=== PATIENT | female | born 1995 | race Caucasian/White ===

== ENCOUNTER → 2024-03-09 14:49 | Outpatient (BNVA) | payer OTHER, SELFPAY | PROVIDERS: PCP Family Medicine; Visit Provider Physician Assistant Surgical ==

== ENCOUNTER 2024-03-18 08:01 | Outpatient (AMB) | payer OTHER, SELFPAY ==
--- OUTSIDE RECORDS SUMMARY | 2024-03-18 08:05 | XMS_ITS | Encounter Summary ---
Author Organization [employer] Address [address] [place] [address] 7 [place] [address] Care Team Providers Care Dental Appliance Repairer Name Role Phone Dominik Michaels Primary Care Provider [phone] Encounter Details Date Type Department Care Team (Late st Contact Info) Description 03/04/2023 Abstract [facility] [address] [place] [phone] Dominik Michaels PA [address] [place] [address] Social History Tobacco Use Types Packs/Day Years Used Date Smoking Tobacco: Never Passive Smoke Exposure: Never Smokeless Tobacco: Never Alcohol Use Standard Drinks/Week Comments Yes 0 (1 standard drink = 0.6 oz pur e alcohol) socially Alcohol Answer Date Recorded How often do you have a drink containing alcohol ? 2 02/27/2023 How many drinks containing a lcohol do you have on a typical day when you are drinking? 0 02/27/2023 How often do you have six or more drinks on one occasion? 0 02/27/2023 Housing Stability Answer Date Recorded What is your housing situation today? I have tunde [place] 02/27/[address] you li ve. Do you have problems with any of the following? None of the above 02/27/2023 Food Insecurity Answer Date Recorded Within the past 12 months, y ou worried that your food would run out before you got money to buy more: Never True 02/27/2023 Within the past 12 months,th e food you bought just didn't last and you didn't have enough money to get more: Never True Transportation Answer Date Recorded In the past 12 months, has l ack of transportation kept you from medical appts, meetings, work or from getting things needed for daily living? No 02/27/2023 Intimate Partner Violence Answer Date R ecorded Within the last year, have y ou been afraid of your partner or ex-partner? 2 02/27/2023 Within the last year, have y ou been humiliated or emotionally abused in other ways by your partner or ex-partner? 2 Within the last year, have y ou been kicked, hit, slapped, or otherwise physically hurt by your partner or ex-partner? 2 02/27/2023 Within the last year, have y ou been raped or forced to have any kind of sexual activity by your partner or ex-partner? 2 02/27/2023 Utilities Answer Date Recorded In the past 12 months, has t he electric, gas, oil or water company threatened to shut off services in your home? No 02/27/2023 Depression Answer Date Recorded Patient Health Questionnaire-2 Score 0 01/20/2023 Comments No Sex and Gender Information Value Date Recorded Sex Assigned at Female 02/07/2022 10:58 AM EST Legal Sex Female 10:41 AM EST Gender Identity Female 01/08/2022 10:41 AM EST Sexual Orientation Straight 01/08/2022 10 :41 AM EST documented as of this encounter Plan of Treatment Not on file documented as of this encounter Visit Diagnoses Not on filedocumented in this encounter Care Teams Dental Appliance Repairer Relationship Specialty Start Date End Date Dominik Michaels PA [address] [place] [id number] PCP - General Family Medicine 01/07/22 documented as of this encounter
--- OUTSIDE RECORDS SUMMARY | 2024-03-18 08:05 | XMS_ITS | Encounter Summary ---
Author Organization [employer] Address [address] [place] [address] [place] [address] Care Team Providers Care Cyber Security Administrator Name Role Phone Dominik Michaels Primary Care Provider [phone] Encounter Details Date Type Department Care Team (Late st Contact Info) Description 03/28/2022 Abstract [facility] [address] [place] [phone] Dominik Michaels PA [address] [place] [address] Social History Tobacco Use Types Packs/Day Years Used Date Smoking Tobacco: Never Passive Smoke Exposure: Never Smokeless Tobacco: Never Alcohol Use Standard Drinks/Week Comments Yes 0 (1 standard drink = 0.6 oz pur e alcohol) socially Depression Answer Date Recorded Patient Health Questionnaire-2 Score 0 01/28/2022 Comments No Sex and Gender Information Value Date Recorded Sex Assigned at Female 02/07/2022 10:58 AM EST Legal Sex Female 10:41 AM EST Gender Identity Female 01/08/2022 10:41 AM EST Sexual Orientation Straight 01/08/2022 10 :41 AM EST COVID-19 Exposure Response Date Recorded In the last 10 days, have yo u been in contact with someone who was confirmed or suspected to have Coronavirus/COVID-19? No / Unsure 03/11/2022 7:58 AM EST documented as of this encounter Plan of Treatment Not on file documented as of this encounter Visit Diagnoses Not on filedocumented in this encounter Care Teams Cyber Security Administrator Relationship Specialty Start Date End Date Dominik Michaels PA [address] [place] [address] PCP - General Family Medicine 01/07/22 documented as of this encounter
--- OUTSIDE RECORDS SUMMARY | 2024-03-18 08:05 | XMS_ITS | Encounter Summary ---
Author Organization [employer] Address [address] [place] [address] 7 [place] [address] Care Team Providers Care Institutional Cook Name Role Phone Dominik Michaels Primary Care Provider [phone] Reason for Visit * Reason Comments Med Refill Encounter Details Date Type Department Care Team ([facility] st Contact Info) Description 03/06/2024 Refill [facility] [address] [place] [phone] Dominik Michaels PA [address] [place], [place] [id number] Insomnia, unspecified type Social History Tobacco Use Types Packs/Day Years [...] AM EST documented as of this encounter Miscellaneous Notes * Telephone Encounter - Kamila Arciniega - 03/08/2024 1:01 PM EST [facility] for c/b to schedule * Telephone Encounter - GRACIA Ngo - 03/08/2024 11:32 AM EST Refill provided. Needs appointment before next refill. * Telephone Encounter - Darlene España - 03/07/2024 8:34 AM EST PCP: GRACIA Ngo Last in-person office visit: 02/27/2023 GRACIA Ngo Lab Results Component Value Date BUN 14 02/12/2022 CREATININE 0.6 02/12/2022 EGFRCREATINI 126 02/12/2022 HGBA1C 5.1 02/12/2022 K 4.0 02/12/2022 TSH 2.55 02/12/2022 Assessment: [x] Protocol passed [] Lab due [] Appointment due Plan: [x] Please refill for 90 days [] Lab [] BMP [] TSH [] A1C [] Appointment due: No future appointments. Comments: documented in this encounter Plan of Treatment Not on file documented as of this encounter Visit Diagnoses Diagnosis Insomnia, unspecified type documented in this encounter Care Teams Institutional Cook Relationship Specialty Start Date End Date Dominik Michaels PA [address] [place] [id number] PCP - General Family Medicine 01/07/22 documented as of this encounter
--- OUTSIDE RECORDS SUMMARY | 2024-03-18 08:05 | XMS_ITS | Encounter Summary ---
Author Organization [employer] Address [address] [place] [address] [address] [place] [address] Care Team Providers Care Police Surgeon Name Role Phone Dominik Michaels Primary Care Provider [phone] Encounter Details Date Type Department Care Team (Late st Contact Info) Description 01/07/2022 Abstract [facility] [address] [place] [phone] Dominik Michaels PA [address] [place] [address] Social History Tobacco Use Types Packs/Day Years Used Date Smoking Tobacco: Never Assessed Comments Unknown Sex and Gender Information Value Date Recorded Sex Assigned at Female 02/07/2022 10:58 AM EST Legal Sex Female 10:41 AM EST Gender Identity Female 01/08/2022 10:41 AM EST Sexual Orientation Straight 01/08/2022 10 :41 AM EST documented as of this encounter Plan of Treatment Not on file documented as of this encounter Visit Diagnoses Not on filedocumented in this encounter Care Teams Police Surgeon Relationship Specialty Start Date End Date Dominik Michaels PA [address] [place] [address] PCP - General Family Medicine 01/07/22 documented as of this encounter
--- OUTSIDE RECORDS SUMMARY | 2024-03-18 08:05 | XMS_ITS | Encounter Summary ---
Author Organization [employer] Address [address] [place] [address] 7 [place] [address] Care Team Providers Care Data Warehousing Engineer Name Role Phone Dominik Michaels Primary Care Provider [phone] Reason for Visit * Reason Onset Date Comments Cervical Cancer Screening 02/24/2024 Encounter Details Date Type Department Care Team ([facility] st Contact Info) Description 02/24/[address] [phone] Dominik Michaels PA [address] [place], [place] [id number] Cervical Cancer Screening Social History Tobacco Use Types Packs/Day Years [...] is your housing situation today? I have tundemode [place] 02/27/[address] you [...] on filedocumented in this encounter Care Teams Data Warehousing Engineer Relationship Specialty Start Date End Date Dominik Michaels PA [address] [place] [id number] PCP - General Family Medicine 01/07/22 documented as of this encounter
--- OUTSIDE RECORDS SUMMARY | 2024-03-18 08:05 | XMS_ITS | Clinical Summary ---
Author Organization [employer] Address [address] [facility] [address] [place] [address] Care Team Providers Care Filling Machine Operator Name Role Phone Dominik Michaels Primary Care Provider [phone] Allergies Active Allergy Reactions Criticality Noted Date Comments Sulfa Antibiotics Anaphylaxis High 08/30/2014 Sulfamethoxazole-Trimethoprim 2014 Hives Hives Medications * This document contains information received from the source organization and may not represent a complete record from that organization. Dupixent 300 MG/2ML injection 01/10/20 22 Active amphetamine-dextr oamphetamine XR (Adderall XR) 20 MG 24 hr capsule Take 1 capsule (20 mg) by mouth in the morning for 28 days. Do not crush or chew. 28 capsule 01/28/20 23 Active naltrexone (Depade) 50 MG tablet TAKE 1/2 TABLET BY MOUTH IN THE MORNING 15 tablet 2 03/13/19 24 Active amphetamine-dextr oamphetamine (Adderall) 20 MG tabletIndications :Attention deficit hyperactivity disorder (ADHD), combined type Take 1 tablet (20 mg) by mouth Once daily for 28 days. Take in the afternoon. 28 tablet 03/18/19 24 Active amphetamine-dextr oamphetamine XR (Adderall XR) 20 MG 24 hr capsuleIndication s:Attention deficit hyperactivity disorder (ADHD), combined type Take 1 capsule (20 mg) by mouth in the morning for 28 days. Do not crush or chew. 28 capsule 03/24/19 24 Active metFORMIN XR (Glucophage-XR) 500 MG 24 hr tablet TAKE 4 TABLETS (2,000 MG) BY MOUTH WITH EVENING MEAL. DO NOT CRUSH, CHEW, OR SPLIT. 360 tablet 1 05/07/19 24 Active lamoTRIgine (LaMICtal XR) 200 mg tablet sustained-release 24 hour 24 hr tabletIndications :Bipolar 1 disorder, depressed, partial remission (CMS/HCC) TAKE 1 TABLET BY MOUTH IN THE MORNING 90 tablet 01/11/20 24 Active traZODone (Desyrel) 100 MG tabletIndications :Insomnia, unspecified type TAKE 1 TABLET BY MOUTH AT BEDTIME 90 tablet 03/08/19 25 Active traZODone (Desyrel) 100 MG tabletIndications :Insomnia, unspecified type TAKE 1 TABLET BY MOUTH AT BEDTIME 90 tablet 3 03/12/19 24 025 Discontinued Active Problems Problem Noted Date Diagnosed Date Adjustment disorder with depressed mood 07/10/19 23 Obesity 05/29/2022 Assessment & Plan (02/27/2023 5:07 PM EST): Worsening obesity BMI 31.71 with progressive weight gain despite metformin, now with associated recurrent binge-eating. Pt w/ new health insurance. Shared decision to try GLP1 again given previous benefit with trulicity towards weight loss goals. Script sent for wegovy 0.25mg weekly. Also will try naltrexone 25mg daily for possible benefit towards binge-eating - reviewed risks/benefits and s/e profile. Return in 1 month for continued monitoring/ management. May consider dose increases at that time. For now continue metformin XR 1500mg daily; may ultimately discontinue if GLP1 approved given lack of demonstrated benefit from metformin thus far. Assessment & Plan (01/20/2023 9:07 AM EST): Worsening since switching from trulicity to metformin per insurance requirements, despite continued lifestyle measures. Shared decision to increase metformin from XR 1000mg daily to XR 1500mg daily. F/u again in 6 weeks on effect/tolerability. Assessment & Plan (12/12/2022 5:21 AM EDT): Prior auth denied for trulicity; patient no longer able to obtain through new insurance. Discussed alternatives. PA listing recommendation for metformin trial - if patient fails 90-day trial then may be able to re-submit PA for trulicity though unclear if pt even meets insurance eligibility criteria for metformin given treatment on sole basis of obesity. Reviewed this with pt and also reviewed risks/benefits of metformin therapy for obesity - pt in agreement to attempt to initiate trial. Rx sent for metformin XR 500mg once daily x 2 wks, then XR 1000mg once daily thereafter. Reviewed s/e profile. Take with food. Return in 1 month for f/u on effect/tolerability. Alternatively if insurance company does not approve metformin then may need to consider alternative; unsure if [facility] will approve any med for weight-loss unfortunately. Assessment & Plan (10/31/2022 2:57 PM EDT): Increasing Trulicity to 4.5 mg weekly for further effect. Return in 3 months for follow-up on effect/tolerability Assessment & Plan (07/29/2022 9:05 AM EDT): Clinically benefiting from current med regimen, taking as prescribed and tolerating well with no side effects. Increasing Trulicity to 3 mg weekly via shared decision making. Patient has scheduled appointment with juvenile court judge. Will return in 3 months for regular follow-up or sooner as needed. May increase Trulicity again at that time to 4.5 mg weekly if further weight loss warranted and progress plateaus. Assessment & Plan (05/29/2022 8:52 AM EDT): Restarting weight loss med therapy via shared decision-making. Pt agreeable to first line GLP-1 agonist rather than phentermine. Reviewed s/e profile and adverse event risk. No known personal or family hx/o thyroid cancer or pancreatitis. Will start at 0.25mg dose for 4 wks, then increase to 0.5mg and return in 8wks for f/u on effect/tolerability. Goal 1-2 lbs/wk. Also sent msg to referrals inquiring about non-surgical weight loss programs that pt's insurance would cover. Bipolar 1 disorder, depressed, partial remission 01/28/2022 Overview (01/28/2022): On lamotrigine 200mg every day. Assessment & Plan (07/29/2022 9:04 AM EDT): Overall stable. Sent message to behavioral health team per patient request to switch to different therapist. Assessment & Plan (01/28/2022 9:05 AM EST): Clinically benefiting from current med regimen, taking as prescribed and tolerating well with no side effects. Continue as is and will continue to monitor. Referral also placed for internal BH therapy. Pt would like to restart counseling but start with short-term therapy. Insomnia 01/28/2022 Overview (01/28/2022): Stable on trazodone 100mg nightly started approx 2015. Assessment & Plan (01/28/2022 9:09 AM EST): Clinically benefiting from current med regimen, taking as prescribed and tolerating well with no side effects. Continue as is and will continue to monitor. Encounter for surveillance o f Nexplanon subdermal contraceptive 01/28/2022 Overview (01/28/2022): Placed 2018. Plan for removal in 2023 via shared decision-making. Attention deficit hyperactiv ity disorder (ADHD), combined type 01/28/2018 Overview (07/29/2022): Stable on adderall XR 20mg each morning, IR 20mg each afternoon Assessment & Plan (02/27/2023 5:01 PM EST): Stable. Clinically benefiting from current med regimen, taking as prescribed and tolerating well with no side effects. Continue as is and will continue to monitor. Obtained repeat med contract and tox screen today. Assessment & Plan (01/20/2023 9:07 AM EST): Clinically benefiting from current med regimen, taking as prescribed and tolerating well with no side effects. Continue as is and will continue to monitor. Assessment & Plan (10/31/2022 2:57 PM EDT): Clinically benefiting from current med regimen, taking as prescribed and tolerating well with no side effects. Continue as is and will continue to monitor. No concern for misuse/diversion at this time. Assessment & Plan (07/29/2022 9:03 AM EDT): Clinically benefiting from current med regimen, taking as prescribed and tolerating well with no side effects. Continue as is and will continue to monitor. Regular monitoring tox screen obtained today. No concerns for misuse/diversion at this time. Assessment & Plan (05/29/2022 8:50 AM EDT): Sending typical adderall XR script (20mg) to new pharmacy pt thinks may have in stock. If not then she will call other pharmacies, may consider switching to different stimulant based on availability. Assessment & Plan (03/11/2022 8:27 AM EST): Increasing Adderall XR from 10 mg to 15 mg per shared decision making. Up-to-date on tox screen and contract. 7-day prescription sent, patient in agreement to send portal message nearing end of this prescription with report on efficacy and side effect profile. At that time will either refill 28-day supply of this dose, or consider increasing further to 20 mg XR. We will see again in person in 3 months. Assessment & Plan (01/28/2022 9:08 AM EST): Was stable on mydayis 50mg every day w/ no s/e. Off for 2 months d/t insurance lapse. Restarting today at 12.5mg dose - 7 day rx sent, med contract signed, saliva tox obtained. If tox screen appropriate upon receipt will send 28 day supply at increased 25mg dose. Pt to reach out prior if feels stable on 12.5mg and/or if having s/e. Will f/u in 6wks. Eczema 07/19/2014 Overview (01/28/2022): Receives dupixent injections at [facility] with Marino Solano. Resolved Problems Problem Noted Date Diagnosed Date Resolved Date Weight gain 01/28/2022 02/27/2023 Assessment & Plan (01/28/2022 9:10 AM EST): Labs ordered to assess for organic etiology. She will return to have drawn prior to next visit for review together at that time. Encounters Date Type Department Care Team Description 03/06/[address] [phone] Dominik Michaels PA Insomnia, unspecified type 02/24/[address] [phone] Dominik Michaels PA Cervical Cancer Screening 02/05/[address] [phone] Dominik Michaels PA 01/09/[address] [phone] Dominik Michaels PA Bipolar 1 disorder, depressed, partial remission ([facility]) from Last 3 Months Immunizations Name Administration Dates Next Due DTP 10/08/1999, 8,04/20/1996,02/07,1995 DTaP / HiB / IPV 01/09/1997, 7,02/08/1996,12/03 HPV, Quadrivalent 07/19/2013,03/21/2013,01/18/20 13 Hep B, Adolescent or Pediatric 07/07/1996,1995,1995 INFLUENZA INJECTABLE QUADRIV ALANT CCIIV4 MDCK Multi-dose vial 12/05/2016 IPV 09/29/2000, 8,02/08/1996,12/03 Influenza Injectable Quadriv alant Preservative Free IIV4 MDCK 11/01/2019,10/28/2018,10/26/2017 Influenza injectable quadriv alent preservative free 01/28/2022 Influenza, IIV3, injectable 12/16/2012 Influenza, Unspecified 2022 MMR 09/29/2000,01/09/1997 Meningococcal MCV4P ACYW-135 08/30/2014 Meningococcal MPSV4 12/13/2008 Moderna Covid-19 Vaccine 12+ 12/25/2020 PPD Test 09/26/2015 Pfizer Covid-19 Vaccine 12+ Bivalent 01/28/2022 Rabies - IM Fibroblast Culture 0,07/23/2019,07/19/2019,07/13 Rabies Immune Globulin 07/14/2019 Td (adult) 07/14/2019 Tdap 10/06/2012,11/18/2006 Varicella 12/13/2008,04/10/1997 Social History Tobacco Use Types Packs/Day Years Used Date Smoking Tobacco: Never Passive Smoke Exposure: Never Smokeless Tobacco: Never Tobacco Cessation:Counseling Given: Not Answered Alcohol Use Standard Drinks/Week Comments Yes 0 [...] Orientation Straight 01/08/2022 10 :41 AM EST Last Filed Vital Signs Vital Sign Reading Time Taken Comments Blood Pressure 114/72 03/10/2023 3:24 PM EST Pulse 105 03/10/2023 3:24 PM EST Temperature 37.2 ??C (99 ??F) 03/10/2023 3:24 PM EST Respiratory Rate - - Oxygen Saturation 98% 03/10/2023 3:24 PM EST Inhaled Oxygen Concentration - - Weight 81.2 kg (179 lb) 02/27/2023 4:06 PM EST Height 160 cm (5' 3 ) 12/11/2022 4:25 PM EDT Body Mass Index 31.71 12/11/2022 4:25 PM EDT Plan of Treatment Health Maintenance Due Date Last Done Comments Alcohol/Substance Use Screening 2007 Family Planning (PISQ) 10/08/2010 Pap Smear 10/08/2016 Depression Screening 01/21/2024 01/20/2023, 01/21/20 23 SDOH Screening 02/28/2024 02/27/2023 Tobacco Screening 03/10/2024 03/10/2023 Lipid Panel 02/12/2027 02/12/2022 DTaP/Tdap/Td Vaccines (9 - Td or Tdap) 07/13/2029 07/14/2019, 07/14/2019, 10/06/2012, Additional history exists Zoster Vaccines (1 of 2) 10/08/2045 RSV Patients and Patients Aged 60 years or older (1 - 1-dose 75+ series) 10/08/2070 Hepatitis B Vaccines Completed 07/07/1996, 1995, 1995 HIB Vaccines Completed 01/09/1997, 02/1996, 04/20/1996, Additional history exists IPV Vaccines Completed 09/29/2000, 03/1997, 01/09/1997, Additional history exists HPV Vaccines Completed 07/19/2013, 03/12, 01/17/2013 Meningococcal Vaccine Completed 08/30/2014 , 08/30/2014, 12/13/2008 HIV Screening Completed 02/12/2022 Hepatitis C Screening Completed 02/12/2022 COVID-19 Vaccine Completed 11/15/2023, , 12/25/2020, Additional history exists Influenza Vaccine Completed 11/15/2023, , 2022, Additional history exists Hepatitis A Vaccines Aged Out No long er eligible based on patient's age to complete this topic Pneumococcal Vaccine: Pediatrics (0 to 5 Years) and At-Risk Patients (6 to 49) Years) Aged Out No longer eligible based on patient's age to complete this topic RSV under 20 months Aged Out No longe r eligible based on patient's age to complete this topic Rotavirus Vaccines Aged Out No longer eligible based on patient's age to complete this topic Procedures Procedure Name Priority Date/Time Associated Diagnosis Comments HEPATITIS C AB W/REFLEX TO HCV QUANT NAAT IF POSITIVE Routine 02/12/2022 8:37 AM EST HIV 1/2 ANTIGEN/ANTIBODY, FOURTH GENERATION W/RFL Routine 02/12/2022 8:37 AM EST LIPID PANEL, STANDARD Routine 02/12/2022 8:37 AM EST Weight gain from Last 3 Months or Most Recently Relevant to Health Maintenance Results * Hepatitis C Antibody w/Reflex HCV Quant PCR (02/12/2022 8:37 AM EST) Hepatitis C Virus Ab, Serum NEGATIVE (NEG) [facility] Comment: Reference range: Negative This test was performed on the [employer] Mangle Tender immunoassay system. Testing performed or reported by [facility], a Service of [facility], [facility] [place] [address] Reid Chairez MD, Fine Arts [employer] IA# [id number] 02/12/2022 8:37 AM EST 02/12/2022 8:38 AM EST us Dominik FAGAN LAB BLOOD ORDERABLES Final Resul t Performing Organization Address [facility] Co de Phone Number [facility] [address] [place] [phone] * HIV-1/2 Antigen and Antibodies, Fourth Generation, with Reflexes (02/12/2022 8:37 AM EST) Result 4th Gen HIV Antibody Antigen NEGATIVE (NEG) [facility] Comment: Negative for antibodies to HIV 1 and HIV 2 and P24 antigen. Reference range: Negative Additional note: Written patient authorization is required for each separate release of this test result. This test was performed on the [employer] Mangle Tender immunoassay system. Testing performed or reported by [facility], a Service of [facility], [address] [place], [place] [address], [place] [address] Reid Chairez MD, [employer] CLIA# [id number] 02/12/2022 8:37 AM EST 02/12/2022 8:39 AM EST Dominik FAGAN LAB BLOOD ORDERABLES Final Resul t Performing Organization Address [facility] de Phone Number [facility] [address] [place] [phone] * Lipid Panel, Standard (02/12/2022 8:37 AM EST) Cholesterol, Total 149 (<200) MG/DL [facility] Triglyceride (mg/dL) in Serum/Plasma 52 (<150) MG/DL [facility] HDL Cholesterol 59 (>39) MG/DL [facility] LDL Cholesterol, Calculated 80 (0-130) MG/DL [facility] Non HDL Chol. (LDL+VLDL) 90 (<160) MG/DL [facility] Comment: Testing performed or reported by [facility], a Service of [facility], [address] [place] [id number] Yusra Winslow MD, [employer] CLIA# [id number] Blood Venous blood specimen / Unknown 02/12/2022 8:37 AM EST 02/12/2022 8:38 AM EST Dominik FAGAN LAB BLOOD ORDERABLES Final Resul t [facility] [address] [place] [address] from Last 3 Months or Most Recently Relevant to Health Maintenance Insurance [address] [id number] BCBS PPO Care Teams Filling Machine Operator Relationship Specialty Start Date End Date Dominik Michaels PA [address] [place] [id number] PCP - General Family Medicine 01/07/22
--- OUTSIDE RECORDS SUMMARY | 2024-03-18 08:05 | XMS_ITS | Encounter Summary ---
Author Organization [employer] Address [address] [place] [address] 7 [place] [address] Care Team Providers Care Brusher Machine Name Role Phone Dominik Michaels Primary Care Provider [phone] Reason for Visit * Reason Onset Date Comments Med Refill 08/27/2022 Encounter Details Date Type Department Care Team (Late st Contact Info) Description 08/27/[address] [phone] Dominik Michaels PA [address] [place] [address] [phone] Class 1 obesity without serious comorbidity with body mass index (BMI) of 32.0 to 32.9 in adult, unspecified obesity type Social History Tobacco Use Types Packs/Day [...] suspected to have Coronavirus/COVID-19? No / Unsure 07/29/2022 8:22 AM EDT documented as of this encounter Plan of Treatment Not on file documented as of this encounter Visit Diagnoses Diagnosis Class 1 obesity without serious comorbidity with body mass index (BMI) of 32.0 to 32.9 in adult, unspecified obesity type documented in this encounter Care Teams Brusher Machine Relationship Specialty Start Date End Date Dominik Michaels PA [address] [place] [id number] PCP - General Family Medicine 01/07/22 documented as of this encounter
--- OUTSIDE RECORDS SUMMARY | 2024-03-18 08:05 | XMS_ITS | Encounter Summary ---
Author Organization [employer] Address [address] [place] [address] [address] [place] [address] Care Team Providers Care Instructor Nurse Name Role Phone Dominik Michaels Primary Care Provider [phone] Encounter Details Date Type Department Care Team (Late st Contact Info) Description 03/13/2023 Abstract [facility] [address] [place] [phone] Dominik Michaels PA [address] [place] [address] Social History Tobacco Use Types [...] on filedocumented in this encounter Care Teams Instructor Nurse Relationship Specialty Start Date End Date Dominik Michaels PA [address] [place] [id number] PCP - General Family Medicine 01/07/22 documented as of this encounter
--- NOTE | 2024-03-18 09:12 | A.OFFVIS_ITS ---
VS Expanded 03/18/24 09:27 Height 5 ft 2.5 in Weight 226 lb 4 oz BMI 40.7 Body Fat % 42 Body Fat Mass 95 Fat Free Mass 131.2 Visceral Fat Rating 10 Body Water Mass 94.4 Basal Metabolic Rate/Score 1,858 Intake Visit Reasons: [employer] BMI 40.7 Allergies Sulfa (Sulfonamide Antibiotics) Allergy (Severe, Verified 03/18/24 09:15) Anaphylaxis Medication List - Last Reconciled 03/18/24 by Jamey Torrez MD amphetamine ER 20 mg PO QAM biotin mcg PO cholecalciferol (vitamin D3) 50 mcg PO DAILY dextroamphetamine sulfate 20 mg PO BID dupilumab (Dupixent) 300 mg subcut Q2W etonogestrel (Nexplanon) subdermal lamotrigine 200 mg PO DAILY trazodone 150 mg PO BEDTIME PRN HPI HPI [employer] BMI 40.7: Details: Start time: 9.07am, End time: 9.54am I spent 42 minutes speaking with the patient on the phone plus an additional 5 minutes reviewing and updating records for a total of 47 minutes HPI Comments Details: Previous weight loss efforts: Trulicity: lost 7lbs Wakes: 4.45am, sleeps: 9.30pm Breakfast: occasional has (toast) Lunch: 11.30am (as dinner) Dinner: 5pm (burger, chicken stir watson, pasta) Snacks: 7pm (crackers, dessert) Exercise: apartment building has treadmill Fluids: Coffee (2 cups/d with sugar), tea: none, soda: Lesly froy, juice: cranberry (2/wk), ETOH: 2/wk (2 glass of wine) PFSH Medical History (Updated 03/18/24 @ 09:20 by Jamey Torrez MD) Insomnia Anxiety Depression ADHD Morbid obesity Surgical History (Updated 03/10/24 @ 08:13 by Olga Lemus CMA) Hx of cholecystectomy Hx of adenoidectomy Hx of tonsillectomy Family History (Updated 03/09/24 @ 15:32 by Olga Lemus CMA) Mother No problems noted. Father No problems noted. Social History (Updated 03/09/24 @ 15:32 by Olga Lemus CMA) Alcohol intake: current Alcohol intake frequency: holidays/special occasions only Patient Tobacco Use Status: Never used Tobacco Telehealth Telehealth Telehealth Platform: Telephone Location of provider rendering services: practice address Location of patient: address on file Patient Identification confirmed using: Name, : Yes Telehealth method: voice only Patient verbally consented to treatment: Yes Patient verbally consented to billing insurance company: Yes Patient informed of any privacy concerns related to visit: Yes Minutes spent on Phone/Video with Pt.: 47 Assessment & Plan Assessment & Plan (1) Morbid obesity: Code(s): E66.01 - Morbid (severe) obesity due to excess calories Category: Medical Plan: 1. Plan for lap sleeve gastrectomy. If diaphragmatic or ventral hernias are present at time of surgery, these will be repaired laparoscopically as well. I emphasized the importance of close follow-up, adherence to instructions and good communication. The surgery does not replace the need to change your lifestlyle which is the cause of the obesity problem. The surgery provides the motivation to try again to change your lifestyle, it reduces the appetite and make the transition to a better lifestyle easier and doubles the amount of weight you would lose compared to doing the lifestyle change without the surgery. You will need to be on a liquid diet with protein shakes for 2 weeks before surgery to maximize weight loss and boost your nutritional status to recover better from surgery and also for the first two weeks after surgery to let the stomach heal before we introduce other foods. After the first 2 weeks we will introduce protein bars and soft foods like scrambled eggs, cottage cheese and yogurt and after the 6th week will introduce meat, fish and cooked vegetables in small amounts. Over time you should be able to eat everything in small amounts. Side effects like nausea, vomiting, heartburn or abdominal pain are not common in the practice unless you are not following in the practice. This operation requires lifetime commitment to following in our practice and communication with me. You will much less weight and experience side effects if you don?t communicate or not following in the practice. Complications are rare and in our practice is about 1/10 of the national average. However, you can develop bleeding that may require transfusion (hasn?t happened for year in the practice), you may from complications (we did not have any deaths in the practice) and infections. Infections are usually a result of breakdown in communication or not understanding or following directions correctly. They are difficult to treat, they can happen during the first 6 weeks, they may require to be in the hospital for weeks or even months, not being able to eat by mouth and you may have drains and surgeries to try and correct the issue. Other risks and complications include possible conversion to an open procedure, leaks, small bowel obstruction, blood clots, cardiac, or pulmonary complications, as ferry terminal agent complications such as ulcers, insufficient weight loss and vitamin deficiencies. 2. You will receive a link of our software benjamin to generate an individualized nutritional and exercise plan specific for you. Please send me a screenshot of the plans you will generate Meal to include lean meat (beef, fish, pork, turkey, chicken), or kinyarwanda yogurt, or egg whites, or beans with a salad with olive oil and fruits (berries, pears, apples, kiwi). Avoid salt, breads, potatoes, rice, pasta, desserts. 3. If you choose shakes, each shake would be drunk slowly, like coffee in a period of 2 hours. 4. If you choose bars, cut each bar in 4 pieces and eat each piece in 30min to make each bar last 2 hours. 5. I emphasized the importance of measuring accurately the food portion and measure it when serving the food in plate 6. The meal portions include a specific number of forks of meat and salad. You always eat the meat portion but you can replace up to half of salad/vegetables portion with rice, potatoes or pasta, or a fruit if you like. The less you do it the better weight loss will be. 7. One full-size fork is what it can be scooped on the fork without falling aside and not what can be bit with the fork. Use regular forks like those you find in a typical restaurant. 8. Please buy the body composition scale we discussed and send me weight measurements as soon as possible and then once a week. Always include your diet and exercise plan. 9. The best choice would be to purchase a stationary bike, elliptical or treadmill at home that can track calories. Let me know if you do so I can give you an exercise plan. 10. It is important of avoiding and for at least 18 months postoperatively and has been discussed at the infosession. 11. Goal is to lose at least 1.5-2lbs per week 12. Goal to lose 10% of your weight before surgery, which is about 22lbs. Ultimate weight goal: 204lbs before surgery 13. Please follow the diet plan exactly without any change. If you don't like something about the plan or you feel hungry you need to communicate with me so I can help you revise the plan. You should not change the plan yourself. 14. To be scheduled for EGD due to the history of sleeve gastrectomy and anemia. The possibility of biopsies was discussed. Patient needs to avoid use of NSAIDs and aspirin for 1 week prior to EGD. You must be on liquids only the day before your endoscopy. Risks of perforation and bleeding was discussed with the patient. This will be an outpatient procedure with IV sedation. Orders: Orders H Pylori Breath Test Today E66.01 - Morbid (severe) obesity due to excess calories Complete Blood Count Auto Diff Today E66.01 - Morbid (severe) obesity due to excess calories Vitamin B12 and Folate Today E66.01 - Morbid (severe) obesity due to excess calories Zinc Today E66.01 - Morbid (severe) obesity due to excess calories C Reactive Protein Today E66.01 - Morbid (severe) obesity due to excess calories Vitamin B1 Today E66.01 - Morbid (severe) obesity due to excess calories US abdomen comp w elastography Today E66.01 - Morbid (severe) obesity due to excess calories ECG 12 lead EKG Today E66.01 - Morbid (severe) obesity due to excess calories FL upper GI w air Today E66.01 - Morbid (severe) obesity due to excess calories Insulin Today E66.01 - Morbid (severe) obesity due to excess calories Hemoglobin A1c Today E66.01 - Morbid (severe) obesity due to excess calories Lipid Panel Today E66.01 - Morbid (severe) obesity due to excess calories IRON PROFILE Today E66.01 - Morbid (severe) obesity due to excess calories Comprehensive Met. Panel Today E66.01 - Morbid (severe) obesity due to excess calories Vitamin A Today E66.01 - Morbid (severe) obesity due to excess calories TSH reflex Free T4 Today E66.01 - Morbid (severe) obesity due to excess calories Ferritin Today E66.01 - Morbid (severe) obesity due to excess calories Vitamin D 25-OH Total Today E66.01 - Morbid (severe) obesity due to excess calories XR chest 2V Today E66.01 - Morbid (severe) obesity due to excess calories Referrals Behavioral Health Referral E66.01 - Morbid (severe) obesity due to excess calories Nutrition/Dietitian Referral E66.01 - Morbid (severe) obesity due to excess calories
[2024-03-18 09:27] VITALS: BMI 40.7
== END 2024-03-18 09:56 | disposition home or self-care (01) ==
LOC: HO.HBS 08:01
PROVIDERS: PCP Family Medicine; Visit Provider Surgery
DX: E66.813 Obesity, class 3 (principal); Z68.41 Body mass index [BMI] 40.0-44.9, adult
CPT/HCPCS: 98010